=== PATIENT | female | born 1965 | race Caucasian/White ===

== ENCOUNTER 2016-12-31 07:54 | Day surgery (SDC) | payer BC ==
[~2016-12-31] VITALS: Ht 165.1 cm; Wt 77.1 kg
[~2016-12-31 07:54] MED LIST: CHANTIX0.5 MG PO; NOMEDS *; PERCOCET 5/3251 EACH PO; ZOFRAN4 MG PO
--- NOTE | 2016-12-31 12:31 | Operative Note ---
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 The eyes were protected with Steri-Strips. The perilesional area in the RIGHT nasofacial groove was infiltrated with a total of 3 mL of 2 percent lidocaine containing epinephrine. The markup was incised and the lesion was excised and submitted. Bleeding was stopped with bipolar cautery blood loss was less than 10 mL. Flaps were elevated and the tissue rearrangement geometric plastic repair was done with interrupted 5-0 Vicryl and 5-0 nylon. A Dermabond dressing was applied patient was sent to recovery in good general condition. EBL (ml): 3 Specimens obtained: Same as above at 1231
[2016-12-31 14:04] VITALS: BP 118/72
== END 2016-12-31 12:36 | disposition home or self-care (01) ==
LOC: SDC 07:54
PROVIDERS: Otolaryngology
PROC: 0HB1XZX Excision of Face Skin, External Approach, Diagnostic (ICD-10-PCS; principal; 2016-12-31 10:45)
DX: C44.311 Basal cell carcinoma of skin of nose (principal)

== ENCOUNTER 2017-02-08 08:02 | Day surgery (SDC) | payer BC ==
--- NOTE | 2017-02-08 09:04 | Operative Note ---
Endoscopy Report Date: 02/08/17 Preoperative diagnosis: Family history colon cancer Procedure Type of procedure: Colonoscopy with polypectomy by cold biopsy Indications: 51-year-old white female. Sent for screening colonoscopy. Positive family history of colon cancer in her grandmother. Consent was obtained and patient was taken to the endoscopy procedure room. Adequate intravenous sedation was achieved with titration of 7 mg Versed and 150 colonoscope was inserted via the anus and advanced to the cecum without significant difficulty. Ileocecal valve and appendiceal orifice were clearly identified. Colonoscope was slowly withdrawn through the colon with careful surveillance. In the sigmoid colon she had some beginnings of diverticulosis. There was a diminutive polyp of the rectosigmoid region which may be hyperplastic. This was removed with cold biopsy forceps. Retroflexion within the rectum revealed nonbleeding internal hemorrhoids. Colonoscope was withdrawn Findings 1. Polyp Follow-Up Follow-Up: Recommend follow-up colonoscopy in 5 years at 0904
[2017-02-08 13:59] VITALS: BP 102/59
== END 2017-02-08 09:46 | disposition home or self-care (01) ==
LOC: SDC 08:02
PROVIDERS: Surgery
PROC: 0DBN8ZX Excision of Sigmoid Colon, Via Natural or Artificial Opening Endoscopic, Diagnostic (ICD-10-PCS; principal; 2017-02-08 08:30)
DX: Z12.11 Encounter for screening for malignant neoplasm of colon (principal); Z80.0 Family history of malignant neoplasm of digestive organs; K57.30 Diverticulosis of large intestine without perforation or abscess without bleeding; K63.5 Polyp of colon